=== PATIENT | female | born 1935 | race Caucasian/White ===

== ENCOUNTER 2016-11-06 16:11 | Inpatient (IN) | payer MEDICARE, MEDICAID ==
[~2016-11-06] VITALS: Ht 160 cm; Wt 71.2 kg
[~2016-11-06 16:11] MED LIST: HYDR-3326 PO; HYZAAR PO; LOSARTAN/HCTZ PO; RIVA15TA2 PO
--- NOTE | 2016-11-06 16:50 | NUR ---
DR NIETO AT THE BEDSIDE FOR EVAL AND EXAM.
[2016-11-06] MEDS ORDERED: DOCU-25 PO (17:00)
[2016-11-06] MEDS ORDERED: ACET-2154 PO (17:00)
[2016-11-06] MEDS ORDERED: LORA-258 PO (17:00)
[2016-11-06] MEDS ORDERED: LOSA50TA3 PO (17:00)
[2016-11-06] MEDS ORDERED: HYDR12.55 PO (17:00)
[2016-11-06] MEDS ORDERED: RISP1TAB27 PO (17:00)
[2016-11-06] MEDS ORDERED: NA P133E RC (17:00)
[2016-11-06] MEDS ORDERED: DIVA125C PO (17:00)
[2016-11-06] MEDS ORDERED: MAGN400O4 PO (17:00)
[2016-11-06] MEDS ORDERED: BISA10SU12 RC (17:00)
[2016-11-06 17:19] LABS: BASOPHILS % (AUTO) 0.2 % (0.0-2.0); EOSINOPHILS # (AUTO) 0.1 K/uL (0.0-0.7); EOSINOPHILS % (AUTO) 0.8 % (0.0-7.0); HEMATOCRIT 36.5 % (37-47); HEMOGLOBIN 12.5 G/DL (12.0-16.0); LYMPHOCYTES % (AUTO) 14.7 % (20.5-51.5); MEAN CORPUSCULAR HEMOGLOBIN 25.7 UUG (27.0-31.0); MEAN CORPUSCULAR HGB CONC 34 g/dL (32.0-37.0); MEAN CORPUSCULAR VOLUME 75.2 FL (81.0-99.0); MONOCYTES # (AUTO) 0.5 K/uL (2.0-10.0); MONOCYTES % (AUTO) 6.8 % (0.0-11.0); NEUTROPHILS # (AUTO) 5.1 K/uL (1.8-8.9); NEUTROPHILS % (AUTO) 77.5 % (38.5-71.5); PLATELET COUNT (AUTO) 215 K/UL (150-450); RED BLOOD CELL COUNT(AUTO) 4.85 MIL/UL (4.2-5.4); RED CELL DISTRIBUTION WIDTH 14.3 % (11.5-14.5); WHITE BLOOD COUNT (AUTO) 6.7 K/UL (4.0-11.2)
[2016-11-06 17:23] LABS: CARBON DIOXIDE 27 mmol/L (21-32); CHLORIDE 101 mmol/L (98-107); CREATININE 1.2 mg/dL (0.6-1.3); GLUCOSE 91 mg/dL (74-106); POTASSIUM 4.2 mmol/L (3.5-5.1); SODIUM SERUM 136 mmol/L (136-145); UREA NITROGEN, BLOOD 18 mg/dL (7-18)
[2016-11-06 17:28] LABS: ALANINE AMINOTRANSFERASE 27 U/L (14-59); ALBUMIN 3.7 g/dL (3.4-5.0); ALKALINE PHOSPHATASE 45 U/L (50-136); ASPARTATE AMINOTRANSFERASE 31 U/L (15-37); BILIRUBIN,DIRECT 0.1 mg/dL (0.0-0.2); BILIRUBIN,TOTAL 0.3 mg/dL (0.2-1.0); TOTAL PROTEIN, SERUM 7.3 g/dL (6.4-8.2)
[2016-11-06 17:29] LABS: ACETAMINOPHEN < 2.0 ug/mL (10-30)
[2016-11-06 17:33] LABS: ETHANOL < 3 MG/DL (0-0)
[2016-11-06 17:34] LABS: AMMONIA < 10 umol/L (11-32)
--- NOTE | 2016-11-06 17:44 | NUR ---
DR NIETO MEDICAALY CLEARED BY DR NIETO.
[2016-11-06 17:59] LABS: THYROID STIMULATING HORMONE 1.011 mIU/mL (0.358-3.740)
[2016-11-06 18:00] VITALS: BP 180/104
[2016-11-06 20:00] VITALS: BP 157/90
[2016-11-06] MEDS ORDERED: MAG HYDROX/AL HYDROX/SIMETH 30 ML LIQUID UDC PO PRN (20:00)
[2016-11-06] MEDS ORDERED: MAGNESIUM HYDROXIDE 30 ML LIQUID UDC PO PRN (20:00)
[2016-11-06] MEDS ORDERED: TEMAZEPAM 7.5 MG CAPSULE PO PRN (20:00)
[2016-11-06] MEDS ORDERED: LORAZEPAM 0.5 MG TABLET PO PRN (20:00)
[2016-11-06] MEDS ORDERED: ACETAMINOPHEN 325 MG TABLET PO PRN (20:00)
[2016-11-06] MEDS ORDERED: CLONIDINE HCL 0.1 MG TABLET PO PRN (23:00)
[2016-11-06] MEDS ORDERED: HYDROCODONE/APAP 5-325MG TABLET PO PRN (23:15)
[2016-11-06] MEDS ORDERED: BISACODYL 10 MG SUPP.RECT RC PRN (23:15)
[2016-11-06] MEDS ORDERED: FLEET ENEMA 133 ML BOTTLE RC PRN (23:15)
[2016-11-07 00:01] LABS: IRON, SERUM 21 ug/dL (50-175)
[2016-11-07 07:30] VITALS: BP 136/83
[2016-11-07] MEDS: LOSARTAN POTASSIUM 50 MG TABLET PO SCH (08:46)
[2016-11-07] MEDS: HYDROCHLOROTHIAZIDE 12.5 MG CAPSULE PO SCH (08:46)
[2016-11-07] MEDS ORDERED: RIVAROXABAN 15 MG TABLET PO SCH ×2 (09:00→18:00)
--- NOTE | 2016-11-07 09:52 | NUR ---
Pt receiving pacing unit hallway, easily irritable, speaking loudly in [place].Pt frequently at nursing station, difficult to redirect. Used can coverer system to assist with communication. Refuse all PO medications. Pt is apparantly fixated in getting an apartment, and states she does not need anything from hospital staff, only assistance in attaining an apartment. She also states that she hasn't taken any medications in over a year.
--- NOTE | 2016-11-07 12:53 | NUR ---
Initial discharge instructions: Pt has been residing at [facility] [[address].[place], [place],[address];[phone]].Per nursing staf,the pt is refusing to return to SNF and is requesting an apartment.Pt has no family/next of kin to contact and involve in discharge plan.SW will speak with pt and MD regarding appropriate discharge plans.SW will form a safe and proper discharge.
[2016-11-07 15:21] VITALS: BP 133/83
[2016-11-07 20:00] VITALS: BP 110/71
[2016-11-07] MEDS: risperiDONE 1 MG TABLET PO SCH (20:50)
[2016-11-07] MEDS: DOCUSATE SODIUM 100 MG CAPSULE PO SCH (20:51)
[2016-11-07] MEDS: DIVALPROEX 250 MG TABLET.DR PO SCH (20:51)
[2016-11-08 07:30] VITALS: BP 155/88
[2016-11-08] MEDS: HYDROCHLOROTHIAZIDE 12.5 MG CAPSULE PO SCH (09:03)
[2016-11-08] MEDS: risperiDONE 1 MG TABLET PO SCH ×2 (09:03→21:04)
[2016-11-08] MEDS: LOSARTAN POTASSIUM 50 MG TABLET PO SCH (09:04)
[2016-11-08] MEDS: DIVALPROEX 250 MG TABLET.DR PO SCH ×2 (09:50→21:04)
[2016-11-08 15:07] VITALS: BP 143/90
[2016-11-08 20:30] VITALS: BP 150/94
[2016-11-08] MEDS: DOCUSATE SODIUM 100 MG CAPSULE PO SCH (21:04)
[2016-11-09 07:30] VITALS: BP 125/78
[2016-11-09] MEDS: risperiDONE 1 MG TABLET PO SCH ×2 (08:33→20:21)
[2016-11-09] MEDS: HYDROCHLOROTHIAZIDE 12.5 MG CAPSULE PO SCH (08:34)
[2016-11-09] MEDS: LOSARTAN POTASSIUM 50 MG TABLET PO SCH (08:34)
[2016-11-09] MEDS: ASPIRIN 81 MG TAB.CHEW PO SCH (08:34)
[2016-11-09] MEDS: DIVALPROEX 250 MG TABLET.DR PO SCH ×2 (08:35→20:21)
--- NOTE | 2016-11-09 10:21 | NUR ---
WEEKLY MEETING PO INTAKE 100%, NO DIET RECOMMENDATIONS AT THIS TIME LAST BM 11/08 SKIN INTACT NOTED 1 LB WEIGHT LOSS IN 2 DAYS, NOT SIGNIFICANT MEDS: JULIA MOTA DNI NOTED LABS WNL NO NUTRITION DIAGNOSIS AT THIS TIME MONITOR PO INTAKE, WEIGHT, LABS Addendum: 11/09/16 at [address] Amended: Links added.
[2016-11-09 16:00] VITALS: BP 122/69
[2016-11-09] MEDS ORDERED: HALOPERIDOL DECANOATE 50 MG/1 ML AMPUL IM ONE (17:00)
[2016-11-09 19:43] VITALS: BP 147/87
[2016-11-09] MEDS: DOCUSATE SODIUM 100 MG CAPSULE PO SCH (20:21)
--- NOTE | 2016-11-09 21:45 | NUR ---
PATIENT A/O x1. PATIENT PACING HALLWAY, NO AGGRESSIVE OR COMBATIVE BEHAVIOR NOTED WILL CONTINUE TO MONITOR AND REDIRECT NEEDED. PATIENT COMPLAINT WITH HS MEDICATION. PATIENT DENIES PAIN AT THIS TIME, NO FACIAL GRIMACING NOTED WILL CONTINUE TO MONITOR. PATIENT IS EASILY IRRITABLE, IS REDIRECTABLE
[2016-11-10 07:30] VITALS: BP 124/69
[2016-11-10] MEDS: ASPIRIN 81 MG TAB.CHEW PO SCH (08:51)
[2016-11-10] MEDS: risperiDONE 1 MG TABLET PO SCH ×2 (08:51→20:15)
[2016-11-10] MEDS: DIVALPROEX 250 MG TABLET.DR PO SCH ×2 (08:52→20:15)
[2016-11-10] MEDS: HYDROCHLOROTHIAZIDE 12.5 MG CAPSULE PO SCH (08:52)
[2016-11-10] MEDS: LOSARTAN POTASSIUM 50 MG TABLET PO SCH (08:55)
[2016-11-10 15:10] VITALS: BP 115/68
[2016-11-10 20:00] VITALS: BP 138/74
[2016-11-10] MEDS: DOCUSATE SODIUM 100 MG CAPSULE PO SCH (20:15)
--- NOTE | 2016-11-10 21:47 | NUR ---
PATIENT A/O x1. PATIENT RECEIVED IN BED AWAKE, NO AGGRESSIVE OR COMBATIVE BEHAVIOR NOTED WILL CONTINUE TO MONITOR AND REDIRECT NEEDED. PATIENT COMPLAINT WITH HS MEDICATION. PATIENT DENIES PAIN AT THIS TIME, NO FACIAL GRIMACING NOTED WILL CONTINUE TO MONITOR. PATIENT CALM UPON APPROACH.
[2016-11-11 07:30] VITALS: BP 112/70
[2016-11-11] MEDS: DIVALPROEX 250 MG TABLET.DR PO SCH (08:32)
[2016-11-11] MEDS: ASPIRIN 81 MG TAB.CHEW PO SCH (08:32)
[2016-11-11] MEDS: risperiDONE 1 MG TABLET PO SCH (08:32)
[2016-11-11] MEDS: HYDROCHLOROTHIAZIDE 12.5 MG CAPSULE PO SCH (08:33)
[2016-11-11] MEDS: LOSARTAN POTASSIUM 50 MG TABLET PO SCH (08:33)
--- NOTE | 2016-11-11 10:32 | NUR ---
DC note: The patient will be discharged today to [facility] [[address] [place], [address]; [phone]] via ambulance at 1:00 pm. Please schedule an ambulance for the patient. Spoke with Payton at the facility who stated she would accept the patient today. Patient will follow-up with (Veter[facility] Serum Inspector) and (Psychiatrist) at the facility.
[2016-11-11 16:38] VITALS: BP 164/90
--- NOTE | 2016-11-11 17:05 | NUR ---
1640: BP-164/90, DENIES HEADACHE, DIZZINESS. NO N/V . CLONOPINE .1MG GIVEN ORDERED 1706: DISCHARGED PATIENT TO [facility] VIA AMBULANCE. SENT WITH DISCHARGE INSTRUCTIONS AND BELONGINGS. BP:155/89, PULSE 92, 97%, 18. IN STABLE CONDITION. NO AGGRESSIVE BEHAVIOR. DENIES SI/HI.
== END 2016-11-11 17:06 | DRG 885 ==
LOC: ER 16:11 → GPS 17:47
PROVIDERS: ADMIT Psychiatry & Neurology Psychiatry; ATTEND Internal Medicine
DX: F29 Unspecified psychosis not due to a substance or known physiological condition (principal); F03.91 Unspecified dementia, unspecified severity, with behavioral disturbance; E78.5 Hyperlipidemia, unspecified; J44.9 Chronic obstructive pulmonary disease, unspecified; J45.909 Unspecified asthma, uncomplicated; D50.9 Iron deficiency anemia, unspecified; Z86.718 Personal history of other venous thrombosis and embolism; M19.90 Unspecified osteoarthritis, unspecified site; R73.03 Prediabetes; R19.5 Other fecal abnormalities; I11.9 Hypertensive heart disease without heart failure; F25.9 Schizoaffective disorder, unspecified; Z79.899 Other long term (current) drug therapy
CPT/HCPCS: 36415; 70030-TC; 70450; 71010; 83550; 84443; 85025; 85730; 93005; A4663; G0480-TC; G6040-TC; J1631; J3490